=== PATIENT | female | born 1985 | race Caucasian/White ===

== ENCOUNTER 2017-02-26 15:20 | Emergency (ER) | payer BC ==
[2017-02-26] MEDS ORDERED: fentaNYL PF 100 MCG/2 ML VIAL IV ONE ×3 (15:45→17:00)
--- NOTE | 2017-02-26 16:21 | RAD ---
Indications: Fall. Left ankle pain and swelling and left foot pain and swelling. 3 view left ankle study: No acute fracture or dislocation or ossific process is seen. The mortise ankle joint is intact. 3 view left foot study: No acute fracture or dislocation or osteolytic process is seen. Dorsal soft tissue swelling is seen. Tiny plantar spur of the calcaneus is seen. IMPRESSION: No acute fracture.
--- NOTE | 2017-02-26 17:06 | PHYS DOC ---
General Chief Complaint: ANKLE PROBLEM Stated Complaint: ANKLE INJURY Time Seen by MD: 16:39 Source: patient Exam Limitations: no limitations Problems: History of Present Illness Initial Comments Complaining of left foot and ankle injury. Patient states that prior to arrival she was picking peaches in [place]. She says that she was walking on uneven ground and suffered an inversion mechanism roll of her left ankle. She denies any injury from falling, complains of severe anterolateral ankle pain and swelling. Discomfort is sharp and throbbing severe at its worst somewhat relieved with rest. No numbness tingling weakness or radiating symptoms. Patient has not tried to walk and is hesitant to as she fears she cannot. No prior injury. Onset: just prior to arrival Severity: severe Pain/Injury Location: left foot, left ankle Method of Injury: twisted Modifying Factors: worse with jarring, worse with movement, improves with pain medication, improves with rest Allergies: Coded Allergies: Penicillins (Verified Allergy, Unknown, 02/26/17) Past Medical History Medical History: no pertinent history Surgical History: no surgical history Social History Smoker: non-smoker Alcohol: none Drugs: none Review of Systems Constitutional: denies chills, denies fever Respiratory: denies cough, denies shortness of breath Cardiovascular: denies chest pain, denies palpitations Gastrointestinal: denies nausea, denies vomiting Genitourinary: denies frequency, denies hematuria Musculoskeletal: see HPI Psychiatric/Neurological: see HPI Physical Exam General Appearance: moderate distress, obese Neck: non-tender, supple Cardiovascular/Respiratory: normal peripheral pulses, no respiratory distress Back: no CVA tenderness, no vertebral tenderness Ankles: right ankle non-tender, right ankle normal inspection, right ankle normal range of motion, right ankle no evidence of injury, left ankle other ( anterolateral effusion noted there is exquisite tenderness at the ATF and posterior calcaneofibular ligaments, no palpable bony deformity ligaments and tendons are intact the extremity is neurovascularly intact.) Feet: left foot other (tenderness to palpation and swelling at the dorsal foot there is no palpable bony deformity ligaments and tendons are intact the extremity is neurovascularly intact.) Neurologic/Tendon: normal sensation, normal motor functions, normal tendon functions, responds to pain, no evidence tendon injury Psychiatric: alert, oriented x 3 Skin: normal color, warm/dry Orders, Labs, Meds Left foot, left ankle: Images interpreted by Dr. Ansari. No acute fracture or dislocation, soft tissue swelling noted. I discussed the treatment options. Patient is unwilling to ambulate so we will get her a stirrup air splint and crutches for as needed. Breakthrough pain meds and follow-up with your doctor in [place]. Departure Time of Disposition: 17:03 Disposition: 01 HOME, SELF-CARE Diagnosis: left ankle sprain Condition: GOOD Patient Instructions: Ankle Sprain, Acute, with Phase I Rehab-[facility] [place] - Routine Care for Injuries, [id number] Additional Instructions: TINY, see handout. Use crutches and splint as needed. [id number] ibuprofen 800 mg every 8 hours for baseline discomfort. Prescription: [place] 7.5 mg quantity 20 Take medications with food to avoid nausea and vomiting. Increase fluid intake and take [id number] stool softeners to avoid opiate associated constipation. A disk of your imaging studies has been given to you take to your doctor when you return home. Follow-up with your doctor in 7-10 days for recheck. Return to the ED with new or changing symptoms. SMOOTH ANSARI DO Feb 26, 2017 17:06
[2017-02-26 17:40] VITALS: BP 139/88
== END 2017-02-26 17:20 | disposition home or self-care (01) ==
LOC: ER 15:20
DX: S93.402A Sprain of unspecified ligament of left ankle, initial encounter (principal); Z88.0 Allergy status to penicillin; X58.XXXA Exposure to other specified factors, initial encounter; Y93.89 Activity, other specified; Y99.8 Other external cause status; Y92.89 Other specified places as the place of occurrence of the external cause
CPT/HCPCS: 73610; 73630; 96374; 96376; 99284; J3010